=== PATIENT | female | born 2005 | race Caucasian/White ===

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

== ENCOUNTER 2023-08-07 10:11 | Emergency (ER) | payer OTHER ==
--- OUTSIDE RECORDS SUMMARY | 2023-08-07 10:17 | XMS REPORT | Continuity of Care Document ---
Author Name Unknown Address [address] [facility] [address] [place] [address] [facility] Address [address] [facility] 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 Name Role Phone Willem Adler Primary Care Physician [phone] BAKARI CAMARILLO Attending Clinician Unavailable DONNIE SMITH Attending Clinician Unavailable Bakari Camarillo MD Attending Clinician [phone], [facility] Attending Clinician Unavailable Priscila Nickerson PA-C Attending Clinician [phone] PRISCILA NICKERSON Attending Clinician Unavailable Doctor Unassigned, [place] Attending Clinician U navailable Ultrasound, [facility] Attending Clinician UnavailNaomi Burrell MD Attending Clinician [phone], [facility] Attending Clinician Unavailable Bakari Camarillo MD Admitting Clinician [phone] Payers Payer Name Policy Type Policy Number Effective Date Expirati on Date Source [facility] [id number] 2023 00:00:00 Problems Condition Name Condition Details Condition Category Status Onset Date Resolution Date Last Treatment Date Treating Clinician Comments Source Anemia of mother in , antepartum Anemia of mother in , antepartum Disease Active 07-29 00:00: 00 [facility] Maternal varicella, non-immune Maternal varicella, non-immune Disease Active 07-29 00:00: 00 [facility] 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 Disease Active 6-13 00:00: 00 [facility] Vaginal bleeding affecting early Vaginal bleeding affecting early Disease Active 5-30 00:00: 00 [facility] Normal in second trimester Normal in second trimester Disease Active 5-16 00:00: 00 [facility] Rh negative state in antepartum period Rh negative state in antepartum period Disease Active 1-14 00:00: 00 [facility] Well woman exam Well woman exam Disease Active 8 00:00: 00 [facility] No known active problems No known active problems Disease [facility] Uses hormonal contracept simone patch as primary control method Uses hormonal contracept simone patch as primary control method Disease Resolve d 10-08 00:00: 00 2023-07-02 00:00:00 2023-07-02 14:16:52 [facility] Nexplanon in place Nexplanon in place Disease Resolve d 0 3-03 00:00: 00 2020-10-08 00:00:00 2020-10-08 09:47:12 [facility] Anemia associated with acute blood loss Anemia associated with acute blood loss Disease Resolve d 2019-0 1-16 00:00: 00 2019-04-04 00:00:00 2019-04-04 14:35:14 [facility] Liveborn , of rodriguez , born in hospital by vaginal delivery Liveborn , of rodriguez , born in hospital by vaginal delivery Disease Resolve d 2019-0 1-15 00:00: 00 2019-04-04 00:00:00 2019-04-04 14:35:11 [facility] Positive GBS test Positive GBS test Disease Resolve d 2019-0 1-14 00:00: 00 2019-04-04 00:00:00 2019-04-04 14:35:08 [facility] High-risk in third trimester High-risk in third trimester Disease Resolve d 2018- 2-18 00:00: 00 2019-04-04 00:00:00 2019-04-04 14:35:04 [facility] 39 weeks gestation of 39 weeks gestation of Disease Resolve d 2018-02 17-18 00:00: 00 2019-04-04 00:00:00 2019-04-04 14:35:07 [facility] Encounter for contracept simone management , unspecifie d contracept simone encounter type Encounter for contracept simone management , unspecifie d contracept simone encounter type Disease Resolve d 09-22 00:00: 00 2019-02-02 00:00:00 2019-02-02 09:14:27 [facility] Oral contracept ion initiation Oral contracept ion initiation Disease Resolve d 09-22 00:00: 00 2019-02-02 00:00:00 2019-02-02 09:14:28 [facility] STD (female) STD (female) Disease Resolve d 09-22 00:00: 00 2016-09-22 00:00:00 2016-09-22 17:46:16 [facility] Allergies, Adverse Reactions, Alerts Allergy Name Allergy Type Status Severity Reaction(s) Onset Date Inactive Date Treating Clinician Comments Source NO KNOWN ALLERGIE S Drug Class Active [facility] Social History Social Habit Start Date Stop Date Quantity Comments Source ASSERTION 2023-05-05 00:00:00 [facility] Exposure to SARS-CoV-2 (event) Not sure [facility] Alcoholic beverage intake 2023-07-30 00:00:00 2023-07-30 00:00:00 Current non-drinker of alcohol (finding) [facility] Tobacco use and exposure 2023-07-02 00:00:00 2023-07-02 00:00:00 Smokeless tobacco non-user [facility] Alcohol intake 2020-10-08 00:00:00 2020-10-08 00:00:00 Current non-drinker of alcohol (finding) [facility] History of Social function 2019-09-22 00:00:00 2019-09-22 00:00:00 [facility] Sex assigned at 2003 00:00:00 2005 00:00:00 [facility] Smoking Status Start Date Stop Date Source Never smoked tobacco [facility] Medications Ordered Medication Name Filled Medication Name Start Date Stop Date Current Medication? Ordering Clinician Indication Dosage Frequency Signature (SIG) Comments Components Source ferrous sulfate (IRON, FERROUS SULFATE,) 325 mg (65 mg iron) tablet 07-02 00:00: 00 Yes [id number] 325mg Take 1 tablet by mouth in the morning and 1 tablet in the evening. [facility] bisacodyL (DULCOLAX, BISACODYL,) 5 mg EC tablet 07-02 00:00: 00 Yes [id number] 10mg Take 2 tablets by mouth once daily as needed for Constipati on. [facility] PNV no.95/tejal us fum/folic ac ( ORAL) 07-01 14:35: 18 Yes Take by mouth. [facility] norelgestro min-ethinyl estradiol (XULANE) 150-35 mcg/24 hr patch 10-08 00:00: 00 07-01 00:00 :00 No [id number] 1{patch } Apply 1 Patch to skin weekly. [facility] etonogestre l (NEXPLANON) implant 68 mg 3-03 01:45: 00 04-18 00:36 :00 No 68mg [facility] ascorbic acid (vitamin C) (VITAMIN C) tablet 500 mg 03-04 15:00: 00 Yes 500mg 500 mg, Oral, DAILY, First dose on Thu03/04/19 at 0900, Until Discontinu ed, Routine [facility] foLIC acid (FOLATE) tablet 1 mg 03-04 15:00: 00 Yes 1mg 1 mg, Oral, DAILY, First dose on Thu03/04/19 at 0900, Until Discontinu ed, Routine [facility] foLIC acid 1 mg tablet 03-04 00:00: 00 10-08 00:00 :00 No [id number] 1mg Take 1 tablet by mouth daily. [facility] ascorbic acid, vitamin C, 500 mg tablet 03-04 00:00: 00 10-08 00:00 :00 No [id number] 500mg Take 1 tablet by mouth daily. [facility] PNV no.95/tejal us fum/folic ac ( ORAL) 03-03 16:34: 35 03-03 00:00 :00 No Take by mouth. [facility] famotidine (PEPCID) 20 mg tablet 03-03 16:34: 35 03-03 00:00 :00 No 20mg Take 20 mg by mouth daily. [facility] ferrous sulfate tablet 325 mg 03-03 16:15: 00 Yes 325mg 325 mg, Oral, BID, First dose on Thu03/03/19 at 1015, Until Discontinu ed, Routine [facility] rho(D) immune globulin (RHOGAM) syringe 300 mcg 03-03 14:30: 00 03-03 14:30 :00 No 300ug 300 mcg, Intramuscu lar, ONCE, 1 dose, Karo 03/03/19 at 0830, Routine [facility] LR 1000 mL + oxytocin 20 units IV Solution 03-03 01:15: 00 03-02 23:50 :00 No at 999 mL/hr, IV Infusion, ONCE, 1 dose, Thu03/02/19 at 1915, Routine [facility] HYDROcodone -acetaminop hen (NORCO 5) 5-325 mg tablet 1 tablet 03-03 00:11: 42 Yes 1{tbl} 1 tablet, Oral, Q6HPRN, Starting Thu03/02/19 at 1811, Until Discontinu ed, Routine, Pain (scale 7-10) [facility] ibuprofen (IBU) tablet 600 mg 03-03 00:11: 42 Yes 600mg 600 mg, Oral, Q6HPRN, Starting Thu03/02/19 at 1811, Until Discontinu ed, Routine, Pain (scale 4-6) [facility] ondansetron (ZOFRAN (PF)) injection 4 mg 03-03 00:11: 42 Yes 4mg 4 mg, Slow IV Push, Q8HPRN, Starting Thu03/02/19 at 1810, Until Discontinu ed, Routine, Nausea and Vomiting (N/V) [facility] simethicone (GAS RELIEF (SIMETHICON E)) chewable tablet 160 mg 03-03 00:11: 42 Yes 160mg 160 mg, Oral, PC+HSPRN, Starting Thu03/02/19 at 1810, Until Discontinu ed, Routine, Gas [facility] magnesium hydroxide (MILK OF MAGNESIA) 400 mg/5 mL suspension 30 mL 03-03 00:11: 42 Yes 30mL 30 mL, Oral, QDAILYPRN, Starting Thu03/02/19 at 1810, Until Discontinu ed, Routine, Constipati on [facility] acetaminoph en (TYLENOL) tablet 650 mg 03-03 00:11: 41 Yes 650mg 650 mg, Oral, Q6HPRN, Starting Thu03/02/19 at 1810, Until Discontinu ed, Routine, Pain (scale 1-3) [facility] diphenhydrA MINE (BENADRYL) tablet 25 mg 03-03 00:11: 41 Yes 25mg 25 mg, Oral, Q6HPRN, Starting Thu03/02/19 at 1810, Until Discontinu ed, Routine, Sleep, Itching [facility] docusate calcium (SURFAK) capsule 240 mg 03-03 00:11: 41 Yes 240mg 240 mg, Oral, QDAILYPRN, Starting Thu03/02/19 at 1810, Until Discontinu ed, Routine, Constipati on [facility] benzocaine- menthol (DERMOPLAST ) 20-0.5 % topical spray 03-03 00:11: 41 Yes Topical, PRN, Starting Thu03/02/19 at 1810, Until Discontinu ed, Routine, Perineum discomfort [facility] vitamin w/FA tablet 03-03 00:00: 00 10-08 00:00 :00 No [id number] 1{tbl} Take 1 tablet by mouth daily. [facility] docusate calcium 240 mg capsule 03-03 00:00: 00 10-08 00:00 :00 No [id number] 240mg Take 1 capsule by mouth once daily as needed for Constipati on. [facility] ferrous sulfate 325 mg (65 mg iron) tablet 03-03 00:00: 00 10-08 00:00 :00 No [id number] 325mg Take 1 tablet by mouth 2 (two) times daily. [facility] ibuprofen 600 mg tablet 03-03 00:00: 10-08 00:00 :00 No [id number] 600mg Take 1 tablet by mouth every 6 (six) hours as needed (Pain). Take with food or milk. [facility] amnioinfusi on IV infusion via PUMP 0.9 NaCL 1,000 mL 03-02 19:30: 00 03-02 19:35 :00 No 1000mL at 750 mL/hr, Intrauteri ne, ONCE, 1 dose, 03/02/19 at 1330, JUSTUS
Ma y give up 1000 mL. & nbsp;Infus e via Intrauteri ne Pressure Catheter.& nbsp;&nbsp ;The infusion is started at 750 mL/hr by volume controlled infusion pump. "The infusion pump should be clearly labeled AMNIOINF USION.&n bsp; Once 750 mL has been infused, the infusion may be dicsontinu ed or decreased to 100 mL/hr until the liter is complete.& nbsp;&nbsp ;Notify Medical Staff Manager if uterine resting tone exceeds 25 mmHg at any time during the amnioinfus ion. Obst etrics (PAKO) Aminoinfus ion Orders
[facility] lactated ringers IV infusion 1,000 mL 03-02 14:00: 00 03-02 13:10 :00 No 1000mL at 999 mL/hr, 1,000 mL, IV Infusion, ONCE, 1 dose, 03/02/19 at 0800, Routine [facility] LR 1000 mL + oxytocin 20 units IV Solution 03-01 21:30: 00 03-03 00:11 :47 No 4mU/min 4 sandi-unit s/min (12 mL/hr), at 12 mL/hr, IV Infusion, CONTINUOUS , Starting Thu03/01/19 at 1530, Until Thu03/02/19 at 181, JUSTUS [facility] D5W-LR IV infusion 1,000 mL 03-01 21:30: 00 03-03 00:11 :47 No 1000mL at 125 mL/hr, IV Infusion, CONTINUOUS , Starting Thu03/01/19 at 1530, Until Thu03/02/19 at 181, Routine [facility] FENTanyl PF (SUBLIMAZE (PF)) injection 75 mcg 03-01 21:29: 54 03-03 00:11 :47 No 75ug 75 mcg, Slow IV Push, Q1HPRN, Starting Thu03/01/19 at 1529, Until Thu03/02/19 at 181, Routine, contractio n pain without an epidural and SVE < 8 cm and Cat I strip [facility] proMETHazin e (PHENERGAN) 25 mg in NaCl 0.9% (NS) 50 mL piggyback 03-01 21:29: 54 03-03 00:11 :47 No 25mg 25 mg, IV Piggyback, Q6HPRN, Starting Thu03/01/19 at 1529, Until Thu03/02/19 at 1811, 50 mL [facility] lactated ringers IV infusion 500 mL 03-01 21:29: 53 03-03 00:11 :47 No 500mL at 999 mL/hr, 500 mL, IV Infusion, PRN - SEE INSTRUCTIO NS, Starting Thu03/01/19 at 1529, Until Thu03/02/19 at 181, Routine [facility] ferrous sulfate (IRON, FERROUS SULFATE,) 325 mg (65 mg iron) tablet 2018-02 00:00: 00 03-03 00:00 :00 No [id number] 325mg Take 1 tablet by mouth daily. [facility] ranitidine HCl (ZANTAC 150 EFFERDOSE ORAL) 8 20:28: 21 Yes Take by mouth. [facility] PNV no.95/tejal us fum/folic ac ( ORAL) 2018-0 7-15 21:32: 44 Yes Take by mouth. [facility] Immunizations Ordered Immunization Name Filled Immunization Name Date Status Comments Source Rho (d) Immune Globulin 2019-03-03 00:00:00 Completed [facility] Rho (d) Immune Globulin 2019-03-03 00:00:00 Completed [facility] Rho (d) Immune Globulin 2019-03-03 00:00:00 Completed [facility] Rho (d) Immune Globulin 2019-03-03 00:00:00 Completed [facility] Rho (d) Immune Globulin 2019-03-03 00:00:00 Completed [facility] Rho (d) Immune Globulin 2019-03-03 00:00:00 Completed [facility] Rho (d) Immune Globulin 2019-03-03 00:00:00 Completed [facility] Rho (d) Immune Globulin 2019-03-03 00:00:00 Completed [facility] Rho (d) Immune Globulin 2019-03-03 00:00:00 Completed [facility] Rho (d) Immune Globulin 2019-03-03 00:00:00 Completed [facility] Rho (d) Immune Globulin 2019-03-03 00:00:00 Completed [facility] Rho (d) Immune Globulin 2019-03-03 00:00:00 Completed [facility] Rho (d) Immune Globulin 2019-03-03 00:00:00 Completed [facility] Rho (d) Immune Globulin 2019-03-03 00:00:00 Completed [facility] Rho (d) Immune Globulin 2019-03-03 00:00:00 Completed [facility] Rho (d) Immune Globulin 2019-03-03 00:00:00 Completed [facility] Rho (d) Immune Globulin 2019-03-03 00:00:00 Completed [facility] Rho (d) Immune Globulin 2019-03-03 00:00:00 Completed [facility] Rho (d) Immune Globulin 2019-03-03 00:00:00 Completed [facility] Rho (d) Immune Globulin 2019-03-03 00:00:00 Completed [facility] Rho (d) Immune Globulin 2019-03-03 00:00:00 Completed [facility] Rho (d) Immune Globulin 2019-03-03 00:00:00 Completed [facility] Rho (d) Immune Globulin 2019-03-03 00:00:00 Completed [facility] Rho (d) Immune Globulin 2019-03-03 00:00:00 Completed [facility] Rho (d) Immune Globulin 2019-03-03 00:00:00 Completed [facility] Rho (d) Immune Globulin 2019-03-03 00:00:00 Completed [facility] Rho (d) Immune Globulin 2019-03-03 00:00:00 Completed [facility] Rho (d) Immune Globulin 2019-03-03 00:00:00 Completed [facility] Rho (d) Immune Globulin 2019-03-03 00:00:00 Completed [facility] Rho (d) Immune Globulin 2019-03-03 00:00:00 Completed [facility] Rho (d) Immune Globulin 2019-03-03 00:00:00 Completed [facility] Rho (d) Immune Globulin 2019-03-03 00:00:00 Completed [facility] Rho (d) Immune Globulin 2018-12-20 00:00:00 Completed [facility] TDAP (ADACEL) VACCINE 2018-12-20 00:00:00 Completed [facility] Rho (d) Immune Globulin 2018-12-20 00:00:00 Completed [facility] TDAP (ADACEL) VACCINE 2018-12-20 00:00:00 Completed [facility] Rho (d) Immune Globulin 2018-12-20 00:00:00 Completed [facility] TDAP (ADACEL) VACCINE 2018-12-20 00:00:00 Completed [facility] Rho (d) Immune Globulin 2018-12-20 00:00:00 Completed [facility] TDAP (ADACEL) VACCINE 2018-12-20 00:00:00 Completed [facility] Rho (d) Immune Globulin 2018-12-20 00:00:00 Completed [facility] TDAP (ADACEL) VACCINE 2018-12-20 00:00:00 Completed [facility] Rho (d) Immune Globulin 2018-12-20 00:00:00 Completed [facility] TDAP (ADACEL) VACCINE 2018-12-20 00:00:00 Completed [facility] Rho (d) Immune Globulin 2018-12-20 00:00:00 Completed [facility] TDAP (ADACEL) VACCINE 2018-12-20 00:00:00 Completed [facility] Rho (d) Immune Globulin 2018-12-20 00:00:00 Completed [facility] TDAP (ADACEL) VACCINE 2018-12-20 00:00:00 Completed [facility] Rho (d) Immune Globulin 2018-12-20 00:00:00 Completed [facility] TDAP (ADACEL) VACCINE 2018-12-20 00:00:00 Completed [facility] Rho (d) Immune Globulin 2018-12-20 00:00:00 Completed [facility] TDAP (ADACEL) VACCINE 2018-12-20 00:00:00 Completed [facility] Rho (d) Immune Globulin 2018-12-20 00:00:00 Completed [facility] TDAP (ADACEL) VACCINE 2018-12-20 00:00:00 Completed [facility] Rho (d) Immune Globulin 2018-12-20 00:00:00 Completed [facility] TDAP (ADACEL) VACCINE 2018-12-20 00:00:00 Completed [facility] Rho (d) Immune Globulin 2018-12-20 00:00:00 Completed [facility] TDAP (ADACEL) VACCINE 2018-12-20 00:00:00 Completed [facility] Rho (d) Immune Globulin 2018-12-20 00:00:00 Completed [facility] TDAP (ADACEL) VACCINE 2018-12-20 00:00:00 Completed [facility] Rho (d) Immune Globulin 2018-12-20 00:00:00 Completed [facility] TDAP (ADACEL) VACCINE 2018-12-20 00:00:00 Completed [facility] Rho (d) Immune Globulin 2018-12-20 00:00:00 Completed [facility] TDAP (ADACEL) VACCINE 2018-12-20 00:00:00 Completed [facility] Rho (d) Immune Globulin 2018-12-20 00:00:00 Completed [facility] TDAP (ADACEL) VACCINE 2018-12-20 00:00:00 Completed [facility] Rho (d) Immune Globulin Unknown Completed [facility] TDAP (ADACEL) VACCINE Unknown Completed [facility] Rho (d) Immune Globulin Unknown Completed [facility] Rho (d) Immune Globulin Unknown Completed [facility] Rho (d) Immune Globulin Unknown Completed [facility] TDAP (ADACEL) VACCINE Unknown Completed [facility] Rho (d) Immune Globulin Unknown Completed [facility] Rho (d) Immune Globulin Unknown Completed [facility] Rho (d) Immune Globulin Unknown Completed [facility] TDAP (ADACEL) VACCINE Unknown Completed [facility] Rho (d) Immune Globulin Unknown Completed [facility] Rho (d) Immune Globulin Unknown Completed [facility] Rho (d) Immune Globulin Unknown Completed [facility] TDAP (ADACEL) VACCINE Unknown Completed [facility] Rho (d) Immune Globulin Unknown Completed [facility] Rho (d) Immune Globulin Unknown Completed [facility] Rho (d) Immune Globulin Unknown Completed [facility] TDAP (ADACEL) VACCINE Unknown Completed [facility] Rho (d) Immune Globulin Unknown Completed [facility] Rho (d) Immune Globulin Unknown Completed [facility] Rho (d) Immune Globulin Unknown Completed [facility] TDAP (ADACEL) VACCINE Unknown Completed [facility] Rho (d) Immune Globulin Unknown Completed [facility] Rho (d) Immune Globulin Unknown Completed [facility] Rho (d) Immune Globulin Unknown Completed [facility] TDAP (ADACEL) VACCINE Unknown Completed [facility] Rho (d) Immune Globulin Unknown Completed [facility] Rho (d) Immune Globulin Unknown Completed [facility] Rho (d) Immune Globulin Unknown Completed [facility] TDAP (ADACEL) VACCINE Unknown Completed [facility] Rho (d) Immune Globulin Unknown Completed [facility] Rho (d) Immune Globulin Unknown Completed [facility] Rho (d) Immune Globulin Unknown Completed [facility] Rho (d) Immune Globulin Unknown Completed [facility] TDAP (ADACEL) VACCINE Unknown Completed [facility] Rho (d) Immune Globulin Unknown Completed [facility] Rho (d) Immune Globulin Unknown Completed [facility] Rho (d) Immune Globulin Unknown Completed [facility] Rho (d) Immune Globulin Unknown Completed [facility] TDAP (ADACEL) VACCINE Unknown Completed [facility] Rho (d) Immune Globulin Unknown Completed [facility] Rho (d) Immune Globulin Unknown Completed [facility] Rho (d) Immune Globulin Unknown Completed [facility] Rho (d) Immune Globulin Unknown Completed [facility] TDAP (ADACEL) VACCINE Unknown Completed [facility] Rho (d) Immune Globulin Unknown Completed [facility] Rho (d) Immune Globulin Unknown Completed [facility] Rho (d) Immune Globulin Unknown Completed [facility] Vital Signs Vital Name Observation Time Observation Value Comments S ource Systolic blood pressure 2023-07-30 16:13:00 110 mm[Hg] [facility] Diastolic blood pressure 2023-07-30 16:13:00 71 mm[Hg] [facility] Heart rate 2023-07-30 16:13:00 79 /min [facility] Body temperature 2023-07-30 16:13:00 36.94 [facility] Body height 2023-07-30 16:13:00 149.9 cm [facility] Body weight 2023-07-30 16:13:00 49.17 kg [facility] BMI 2023-07-30 16:13:00 21.89 kg/m2 [facility] Systolic blood pressure 2023-07-16 19:33:00 115 mm[Hg] [facility] Diastolic blood pressure 2023-07-16 19:33:00 79 mm[Hg] [facility] Heart rate 2023-07-16 19:33:00 86 /min [facility] Body temperature 2023-07-16 19:33:00 36.89 [facility] Body height 2023-07-16 19:33:00 149.9 cm [facility] Body weight 2023-07-16 19:33:00 46.448 kg [facility] BMI 2023-07-16 19:33:00 20.68 kg/m2 [facility] Systolic blood pressure 2023-07-02 19:34:00 124 mm[Hg] [facility] Diastolic blood pressure 2023-07-02 19:34:00 83 mm[Hg] [facility] Heart rate 2023-07-02 19:34:00 74 /min [facility] Body temperature 2023-07-02 19:34:00 36.67 [facility] Body height 2023-07-02 19:34:00 149.9 cm [facility] Body weight 2023-07-02 19:34:00 45.723 kg [facility] BMI 2023-07-02 19:34:00 20.36 kg/m2 [facility] Systolic blood pressure 2020-10-08 14:33:00 104 mm[Hg] [facility] Diastolic blood pressure 2020-10-08 14:33:00 68 mm[Hg] [facility] Heart rate 2020-10-08 14:33:00 75 /min [facility] Body temperature 2020-10-08 14:33:00 36.89 [facility] Respiratory rate 2020-10-08 14:33:00 18 /min [facility] Body height 2020-10-08 14:33:00 149.9 cm [facility] Body weight 2020-10-08 14:33:00 47.174 kg [facility] BMI 2020-10-08 14:33:00 21.01 kg/m2 [facility] Systolic blood pressure 2020-10-02 19:18:00 122 mm[Hg] [facility] Diastolic blood pressure 2020-10-02 19:18:00 86 mm[Hg] [facility] [facility] Heart rate 2020-10-02 19:18:00 62 /min [facility] Body temperature 2020-10-02 19:18:00 36.94 [facility] Respiratory rate 2020-10-02 19:18:00 18 /min [facility] Body height 2020-10-02 19:18:00 149.9 cm [facility] Body weight 2020-10-02 19:18:00 49.442 kg [facility] BMI 2020-10-02 19:18:00 22.02 kg/m2 [facility] Systolic blood pressure 2019-10-03 18:26:00 107 mm[Hg] [facility] Diastolic blood pressure 2019-10-03 18:26:00 70 mm[Hg] [facility] Heart rate 2019-10-03 18:26:00 90 /min [facility] Body temperature 2019-10-03 18:26:00 36.72 [facility] Respiratory rate 2019-10-03 18:26:00 18 /min [facility] Body height 2019-10-03 18:26:00 152.4 cm [facility] Body weight 2019-10-03 18:26:00 58.968 kg [facility] BMI 2019-10-03 18:26:00 25.39 kg/m2 [facility] Systolic blood pressure 2019-04-18 23:17:00 96 mm[Hg] [facility] Diastolic blood pressure 2019-04-18 23:17:00 71 mm[Hg] [facility] Heart rate 2019-04-18 23:17:00 57 /min [facility] Body temperature 2019-04-18 23:17:00 36.67 [facility] Respiratory rate 2019-04-18 23:17:00 18 /min [facility] Body weight 2019-04-18 23:17:00 55.339 kg [facility] Systolic blood pressure 2019-04-04 20:25:00 98 mm[Hg] [facility] Diastolic blood pressure 2019-04-04 20:25:00 65 mm[Hg] [facility] Heart rate 2019-04-04 20:25:00 56 /min [facility] Body temperature 2019-04-04 20:25:00 36.78 [facility] Respiratory rate 2019-04-04 20:25:00 16 /min [facility] Body height 2019-04-04 20:25:00 149.9 cm [facility] Body weight 2019-04-04 20:25:00 56.427 kg [facility] BMI 2019-04-04 20:25:00 25.13 kg/m2 [facility] Systolic blood pressure 2019-03-04 18:00:00 119 mm[Hg] [facility] Diastolic blood pressure 2019-03-04 18:00:00 75 mm[Hg] [facility] Heart rate 2019-03-04 18:00:00 74 /min [facility] Body temperature 2019-03-04 18:00:00 36.17 [facility] Respiratory rate 2019-03-04 18:00:00 18 /min [facility] Oxygen saturation in Arterial blood by Pulse oximetry 2019-03-04 13:45:00 98 /min [facility] Body height 2019-03-01 21:39:00 149.9 cm [facility] Body weight 2019-03-01 21:39:00 62.959 kg [facility] BMI 2019-03-01 21:39:00 28.03 kg/m2 [facility] Systolic blood pressure 2018-10-25 21:01:00 110 mm[Hg] [facility] Diastolic blood pressure 2018-10-25 21:01:00 79 mm[Hg] [facility] Heart rate 2018-10-25 21:01:00 86 /min [facility] Body temperature 2018-10-25 21:01:00 36.72 [facility] Respiratory rate 2018-10-25 21:01:00 18 /min [facility] Body height 2018-10-25 21:01:00 152.4 cm [facility] Body weight 2018-10-25 21:01:00 50.349 kg [facility] BMI 2018-10-25 21:01:00 21.68 kg/m2 [facility] Systolic blood pressure 2018-09-27 20:27:00 109 mm[Hg] [facility] Diastolic blood pressure 2018-09-27 20:27:00 66 mm[Hg] [facility] Heart rate 2018-09-27 20:27:00 76 /min [facility] Body temperature 2018-09-27 20:27:00 36.78 [facility] Respiratory rate 2018-09-27 20:27:00 18 /min [facility] Body height 2018-09-27 20:27:00 152.4 cm [facility] Body weight 2018-09-27 20:27:00 46.72 kg [facility] BMI 2018-09-27 20:27:00 20.12 kg/m2 [facility] Procedures Procedure Date / Time Performed Performing Clinician Source POCT URINALYSIS W/O SPECIFIC GRAVITY 2023-07-30 00:00:00 Bakari Camarillo [facility] POCT URINALYSIS W/O SPECIFIC GRAVITY 2023-07-16 00:00:00 Bakari Camarillo [facility] <14 WEEKS US LIMITED 2023-07-02 22:31:54 Bakari Camarillo [facility] ASSIGNMENT OF BENEFITS 2020-10-02 18:54:56 Docto r Unassigned, [place] [facility] ASSIGNMENT OF BENEFITS 2019-10-03 18:15:25 Docto r Unassigned, [place] [facility] CONSENT FOR CONTRACEPTION 2019-04-18 06:01:00 Doctor Unassigned, [place] [facility] CBC WITH DIFFERENTIAL 2019-03-03 10:43:00 Bakari Camarillo [facility] HB -MATERNAL HEMORRHAGE SCREEN 2019-03-03 10:43:00 Bakari Camarillo [facility] VENOUS CORD GAS 2019-03-02 23:22:00 Bakari Camarillo [facility] CBC WITH DIFFERENTIAL 2019-03-01 22:03:00 Bakari Camarillo [facility] HEPATITIS B SURFACE ANTIGEN 2019-03-01 22:03:00 Bakari Camarillo [facility] ADC OR POONAM ONLY - RPR 2019-03-01 22:03:00 Bakari Camarillo [facility] HIV 1/2 AG-AB WITH REFLEX 2019-03-01 22:03:00 Bakari Camarillo [facility] RH IMMUNE GLOBULIN REQUIRED? 2019-03-01 22:02:00 Bakari Camarillo [facility] HB ABO GROUPING 2019-03-01 22:02:00 Bakari Camarillo [facility] RHO (D) IMMUNE GLOBULIN 2019-03-01 22:02:00 Bakari Camarillo [facility] HOSPITAL ADMISSION 2019-03-01 06:01:00 Doctor Un assigned, [place] [facility] POCT URINALYSIS W/O SPECIFIC GRAVITY 2018-10-25 00:00:00 Priscila Nickerson [facility] EXTERNAL PROVIDER RECORDS 2018-10-07 05:01:00 Doctor Unassigned, [place] [facility] 3 HR GLUCOSE TOLERANCE TEST 2018-09-28 16:26:00 Priscila Nickerson [facility] 2 HR GLUCOSE TOLERANCE TEST 2018-09-28 15:25:00 Priscila Nickerson [facility] 1 HR GLUCOSE TOLERANCE TEST 2018-09-28 14:23:00 rPiscila Nickerson [facility] GLUCOSE FASTING 2018-09-28 13:13:00 Priscila Nickerson [facility] 3 HR GLUCOSE TOLERANCE PANEL 2018-09-28 13:13:00 Krishan Priscila [facility] CONSENT/REFUSAL FOR DIAGNOSIS AND TREATMENT 2018-09-28 12:57:58 Doctor Unassigned, [place] [facility] ASSIGNMENT OF BENEFITS 2018-09-28 12:57:42 Docto r Unassigned, [place] [facility] ASSIGNMENT OF BENEFITS 2018-09-17 18:00:35 Docto r Unassigned, [place] [facility] Encounters Start Date/Time End Date/Time Encounter Type Admission Type Attending [facility] Facility Care Department Encounter ID Source 2023-09-23 10:45:00 2023-09-23 10:45:00 Outpatient BAKARI TEAGUE [facility] [id number] [facility] 2023-08-28 11:00:00 2023-08-28 11:00:00 Outpatient BAKARI TEAGUE [facility] [id number] [facility] 2023-08-07 00:00:00 2023-08-07 08:15:27 Telephone Bakari Cam[facility]illo [facility] 1.2.840.114 350.1.13.10 4.2.7.2.686 [id number] 134 [id number] [facility] 2023-08-06 11:00:00 2023-08-06 11:15:00 Tuberculosis Specialist Visit 2, Adc Lab Bakari Camarillo [facility] N[facility] 1.2.840.114 350.1.13.10 4.2.7.2.686 [id number] [facility] 2023-08-06 11:00:00 2023-08-06 11:00:00 Outpatient R BAKARI CAMARILLO [facility] [id number] [facility] 2023-07-30 11:15:00 2023-07-30 11:25:12 [facility] [id number] [facility] 2023-07-30 11:15:00 2023-07-30 11:25:12 Routine Visit Bakari Camarillo [facility] 1.2.840.114 350.1.13.10 4.2.7.2.686 [id number] 134 [id number] [facility] 2023-07-16 14:15:00 2023-07-16 14:30:00 Routine Visit Bakari Camarillo [facility] 1.2.840.114 350.1.13.10 4.2.7.2.686 [id number] 134 [id number] [facility] 2023-07-16 14:15:00 2023-07-16 14:15:00 Outpatient R BAKARI CAAMRILLO [facility] [id number] [facility] 2023-07-16 00:00:00 2023-07-16 11:09:00 Telephone Bakari Camarillo [facility] 1.2.840.114 350.1.13.10 4.2.7.2.686 [id number] 134 [id number] [facility] 2023-07-14 00:00:00 2023-07-14 10:05:25 Telephone [facility] 1.2.840.114 350.1.13.10 4.2.7.2.686 [id number] 134 [id number] [facility] 2023-07-14 00:00:00 2023-07-14 09:50:55 [facility] 1.2.840.114 350.1.13.10 4.2.7.2.686 [id number] 134 [id number] [facility] 2023-07-10 00:00:00 2023-07-10 09:43:14 Telephone Bakari Camarillo [facility] 1.2.840.114 350.1.13.10 4.2.7.2.686 [id number] 134 [id number] [facility] 2023-07-03 00:00:00 2023-07-03 12:07:36 Case Management Bakari Camarillo [facility] 1.2.840.114 350.1.13.10 4.2.7.2.686 [id number] 134 [id number] [facility] 2023-07-02 15:30:00 2023-07-02 15:30:00 Tuberculosis Specialist Visit 2, Adc Lab Bakari Camarillo [facility] 1.2.840.114 350.1.13.10 4.2.7.2.686 [id number] 353 [id number] [facility] 2023-07-02 15:30:00 2023-07-02 15:11:09 Outpatient R BAKARI CAMARILLO [facility] [id number] [facility] 2023-07-02 14:30:00 2023-07-02 14:57:50 Initial Visit Bakari Camarillo [facility] 1.2.840.114 350.1.13.10 4.2.7.2.686 [id number] 134 [id number] [facility] 2020-10-08 09:06:36 2020-10-08 09:49:03 Office Visit Bakari Camarillo [facility] 1.2.840.114 350.1.13.10 4.2.7.2.686 [id number] 134 [id number] [facility] 2020-10-08 09:00:00 2020-10-08 09:00:00 Outpatient R BAKARI CAMARILLO [facility] [id number] [facility] 2020-10-02 13:55:09 2020-10-02 14:25:09 [facility] 1.2.840.114 350.1.13.10 4.2.7.2.686 [id number] 134 [id number] [facility] 2020-10-02 14:00:00 2020-10-02 14:00:00 Outpatient R KRISHAN PRISCILA [facility] [id number] [facility] 2020-10-02 00:00:00 2020-10-02 00:00:00 Orders Only Doctor Unassigned, [place] [facility] 1.2.840.114 350.1.13.10 4.2.7.2.686 [id number] [id number] [facility] 2019-10-03 13:16:54 2019-10-03 13:40:22 Office Visit ArtPriscila yarbrough [facility] 1.2.840.114 350.1.13.10 4.2.7.2.686 [id number] 134 [id number] [facility] 2019-10-03 13:00:00 2019-10-03 13:00:00 Outpatient R PRISCILA NICKERSON [facility] [id number] [facility] 2019-10-03 00:00:00 2019-10-03 00:00:00 Orders Only Doctor Unassigned, [place] [facility] 1.2.840.114 350.1.13.10 4.2.7.2.686 [id number] 009 [id number] [facility] 2019-04-18 16:18:02 2019-04-18 17:29:30 Office Visit Bakari Camarillo [facility] 1.2.840.114 350.1.13.10 4.2.7.2.686 [id number] 134 [id number] [facility] 2019-04-18 16:00:00 2019-04-18 16:00:00 Outpatient R BAKARI CAMARILLO [facility] [id number] [facility] 2019-04-18 00:00:00 2019-04-18 00:00:00 Orders Only Doctor Unassigned, [place] [facility] 1.2.840.114 350.1.13.10 4.2.7.2.686 [id number] [id number] [facility] 2019-04-04 14:01:56 2019-04-04 14:16:56 Routine Visit Priscila Nickerson [facility] 1.2.840.114 350.1.13.10 4.2.7.2.686 [id number] 134 [id number] [facility] 2019-03-09 00:00:00 2019-03-09 00:00:00 Telephone Bakari Camarillo [facility] 1.2.840.114 350.1.13.10 4.2.7.2.686 [id number] 134 [id number] [facility] 2019-03-09 00:00:00 2019-03-09 00:00:00 Refill Priscila Nickerson [facility] 1.2.840.114 350.1.13.10 4.2.7.2.686 [id number] 134 [id number] [facility] 2019-03-01 15:00:00 2019-03-04 14:05:00 [address] Encounter Bakari Camarillo [facility] 1.2.840.114 350.1.13.10 4.2.7.2.686 [id number] [facility] 2019-03-01 00:00:00 2019-03-01 00:00:00 Orders Only Doctor Unassigned, [place] [facility] 1.2.840.114 350.1.13.10 4.2.7.2.686 [id number] [facility] 2018-10-25 15:49:21 2018-10-25 16:26:38 Routine Visit Priscila Nickerson [facility] 1.2.840.114 350.1.13.10 4.2.7.2.686 [id number] 134 [id number] [facility] 2018-10-15 13:39:20 2018-10-15 15:05:02 Tuberculosis Specialist Visit Ultrasound, Adc Naomi Sandoval [facility] 1.2.840.114 350.1.13.10 4.2.7.2.686 [id number] 134 [id number] [facility] 2018-10-07 00:00:00 2018-10-07 00:00:00 Orders Only Doctor Unassigned, [place] [facility] 1.2.840.114 350.1.13.10 4.2.7.2.686 [id number] [facility] 2018-09-28 08:00:41 2018-09-28 08:15:41 Tuberculosis Specialist Visit 1, Adc Lab Bakari Camarillo [facility] 1.2.840.114 350.1.13.10 4.2.7.2.686 [id number] [facility] 2018-09-28 00:00:00 2018-09-28 00:00:00 Orders Only Doctor Unassigned, [place] [facility] 1.2.840.114 350.1.13.10 4.2.7.2.686 [id number] 009 [id number] [facility] 2018-09-27 15:19:36 2018-09-27 15:51:04 Routine Visit Bakari Camarillo [facility] 1.2.840.114 350.1.13.10 4.2.7.2.686 [id number] 134 [id number] [facility] 2018-09-20 00:00:00 2018-09-20 00:00:00 Case Management Priscila Nickerson [facility] 1.2.840.114 350.1.13.10 4.2.7.2.686 [id number] 134 [id number] [facility] 2018-09-17 13:00:11 2018-09-17 13:15:11 Tuberculosis Specialist Visit 1, Adc Lab Bakari Camarillo [facility] 1.2840.114 350.1.13.10 4.2.7.2.686 [id number] 353 [id number] [facility] 2018-09-17 00:00:00 2018-09-17 00:00:00 Orders Only Doctor Unassigned, [place] [facility] 1.2840.114 350.1.13.10 4.2.7.2.686 [id number] 009 [id number] [facility] Results Test Description Test Time Test Comments Results Result Co mments Source [facility] w/o Specific [id number] 19:35:00* Test Item Value Reference Range Interpretation Comme nts POCT PH U (test code = 3254) 5 mg/dl 5-8 POCT U LEUK EST (test code = 3263) egative Negative - Negative POCT U NIT (test code = 3262) Negative Negative - Negati ve POCT U PROT (test code = 3259) Negative Negative - Negat simone POCT U GLU (test code = 3256) Negative Negative - Negati ve POCT U KETONE (test code = 3258) Negative Negative - Neg ative POCT U BLD (test code = 3257) Negative Negative - Negati ve [facility]FET[facility] MATERNAL HEMO [id number] 16:26:34 * Test Item Value Reference Range Interpretation Comme nts SCREEN (test code = 846) Negative Performed at [facility] Blood [address] [place] [address] Free: [phone] No. [id number] RHIG REQUIRED? (test code = 1747) 1 Syringe Performed at [facility] Blood [address] [place] [address] Free: [phone] No. [id number] [facility] WITH [id number] 11:02:00* Test Item Value Reference Range Interpretation Comme nts WBC (test code = 6690-2) See_Comment [Automated messa ge] The system which generated this result transmitted reference range: 4.50 - 13.50 10*3/?L. The reference range was not used to interpret this result as normal/abnormal. RBC (test code = 789-8) See_Comment L [Automated messa ge] The system which generated this result transmitted reference range: 4.10 - 5.10 10*6/?L. The reference range was not used to interpret this result as normal/abnormal. HGB (test code = 718-7) 7.9 g/dL 12-16 L HCT (test code = 4544-3) 24.4 % 36-45 L MCV (test code = 787-2) 93.5 fL 78-95 MCH (test code = 785-6) 30.3 pg 26-32 MCHC (test code = 786-4) 32.4 g/dL 32-36 RDW-SD (test code = 63706-6) 42.3 fL 38.5-49 RDW-CV (test code = 788-0) 12.6 % 11.5-14 PLT (test code = 777-3) See_Comment [Automated messa ge] The system which generated this result transmitted reference range: 135 - 361 10*3/?L. The reference range was not used to interpret this result as normal/abnormal. MPV (test code = 26895-5) 9.3 fL 9.4-13.3 L NRBC/100 WBC (test code = 1002410387) See_Comment [Automated me ssage] The system which generated this result transmitted reference range: 0.0 - 10.0 /100 WBCs. The reference range was not used to interpret this result as normal/abnormal. NRBC x10^3 (test code = 1540850817) <0.01 See_Comment [Automated messa ge] The system which generated this result transmitted reference range: 10*3/?L. The reference range was not used to interpret this result as normal/abnormal. GRAN MAT (NEUT) % (test code = 770-8) 76.0 % IMM GRAN % (test code = 5450789805) 0.50 % LYMPH % (test code = 736-9) 13.8 % MONO % (test code = 5905-5) 9.3 % EOS % (test code = 713-8) 0.2 % BASO % (test code = 706-2) 0.2 % GRAN MAT x10^3(ANC) (test code = 7585671703) 9.14 10*3/uL 1.5-10.3 IMM GRAN x10^3 (test code = 1367104323) 0.06 10*3/uL 0-0.06 LYMPH x10^3 (test code = 731-0) 1.66 10*3/uL 0.7-7.4 MONO x10^3 (test code = 742-7) 1.12 10*3/uL 0-0.5 H EOS x10^3 (test code = 711-2) 0.03 10*3/uL 0-0.4 BASO x10^3 (test code = 704-7) 0.03 10*3/uL 0-0.1 Lab Interpretation (test code = 92611-6) Abnormal [facility] I[facility] GLOBULIN REQUIRED?2019-03-03 03:24:57* Test Item Value Reference Range Interpretation Comme nts RHIG REQUIRED? (test code = 1747) 1 Syringe Performed at [facility] Laboratory Services - [facility] [address] [place] [phone] Free: [phone] No. [id number] [facility] (D) IMMUNE [id number] 03:24:56* Test Item Value Reference Range Interpretation Comme nts RHIG CANDIDATE? (test code = 5055) Yes- see comment A Patient is a candidate for RhIg- Patient is Rh Negative and baby is Rh Positive.Performe d at [facility] Laboratory Services - [facility] Blood [address] [place] [phone] Free: [phone] No. [id number] Lab Interpretation (test code = 97981-5) Abnormal [facility] Hospital[facility] Cord [id number] 23:42:00* Test Item Value Reference Range Interpretation Comme nts VENOUS BASE EXCESS, CORD (test code = 1110262730) mEq/L VENOUS PH, CORD (test code = 9132461642) 7.25-7.45 VENOUS PC02, CORD (test code = 4215217891) See_Comment H [Automated me ssage] The system which generated this result transmitted reference range: 27 - 49 mmHg. The reference range was not used to interpret this result as normal/abnormal. VENOUS PO2, CORD (test code = 0741424940) See_Comment [Automated me ssage] The system which generated this result transmitted reference range: 17 - 41 mmHg. The reference range was not used to interpret this result as normal/abnormal. VENOUS BICARBONATE, CORD (test code = 6022368177) See_Comment [Automa karie message] The system which generated this result transmitted reference range: 12 - 29 mEq/L. The reference range was not used to interpret this result as normal/abnormal. Lab Interpretation (test code = 40105-2) [facility]normal [facility] [id number] 23:37:00* Test Item Value Reference Range Interpretation Comme nts BASE EXCESS, CORD (test code = 6052706502) mEq/L AC PH, CORD (BEAKER) (test code = 6462479774) 7.18-7.38 PC02, CORD (test code = 8669785722) See_Comment H [Automated messa ge] The system which generated this result transmitted reference range: 32 - 66 mmHg. The reference range was not used to interpret this result as normal/abnormal. PO2, CORD (test code = 5649900326) See_Comment [Automated messa ge] The system which generated this result transmitted reference range: 10 - 30 mmHg. The reference range was not used to interpret this result as normal/abnormal. BICARBONATE, CORD (test code = 5181546892) See_Comment [Automated me ssage] The system which generated this result transmitted reference range: 17 - 27 mEq/L. The reference range was not used to interpret this result as normal/abnormal. Lab Interpretation (test code = 38679-5) Abnormal [facility] HospitalHepatitis B Surface [id number] 06:38:00 * Test Item Value Reference Range Interpretation Comme nts HBsAg Semi-Quantitative (meredith t code = 5195-3) Negative Negative [facility] POONAM ONLY - [id number] 01:59:00* Test Item Value Reference Range Interpretation Comme nts RPR (Qualitative) (test code = 96175-2) Nonreactive Nonreactive Lab Interpretation (test cod e = 90968-9) Normal [facility] HospitalHIV 1/2 AG-AB WITH [id number] 23:45:00* Test Item Value Reference Range Interpretation Comme nts HIV Semi-quantitative (test code = 36320-2) Negative Negative RADHA (test code = RADHA) Non-reactive for HIV-1 antigen and HIV-1/HIV-2 antibodies. ?No laboratory evidence of HIV infection. ?Repeat in 2-4 weeks if acute HIV infection is suspected. [facility] HospitalType and Screen - ONCE [id number] 23:17:21 * Test Item Value Reference Range Interpretation Comme nts ABO & RH (test code = 20) O Negative Performed at [facility] Laboratory Services - [facility] Blood [address] [place], [place] [id number] Free: [phone] No. [id number] IAT (test code = 1185) Negative Performed at [facility] Laboratory [facility] Blood [address] [place], [place] [id number] Free: [phone] No. [id number] General acute hospital WITH [id number] 22:33:00* Test Item Value Reference Range Interpretation Comme nts WBC (test code = 6690-2) See_Comment [Automated messa ge] The system which generated this result transmitted reference range: 4.50 - 13.50 10*3/?L. The reference range was not used to interpret this result as normal/abnormal. RBC (test code = 789-8) See_Comment L [Automated messa ge] The system which generated this result transmitted reference range: 4.10 - 5.10 10*6/?L. The reference range was not used to interpret this result as normal/abnormal. HGB (test code = 718-7) 10.4 g/dL 12-16 L HCT (test code = 4544-3) 31.6 % 36-45 L MCV (test code = 787-2) 91.6 fL 78-95 MCH (test code = 785-6) 30.1 pg 26-32 MCHC (test code = 786-4) 32.9 g/dL 32-36 RDW-SD (test code = 92141-2) 42.1 fL 38.5-49 RDW-CV (test code = 788-0) 12.6 % 11.5-14 PLT (test code = 777-3) See_Comment [Automated messa ge] The system which generated this result transmitted reference range: 135 - 361 10*3/?L. The reference range was not used to interpret this result as normal/abnormal. MPV (test code = 11824-1) 9.5 fL 9.4-13.3 NRBC/100 WBC (test code = 7978801532) See_Comment [Automated me ssage] The system which generated this result transmitted reference range: 0.0 - 10.0 /100 WBCs. The reference range was not used to interpret this result as normal/abnormal. NRBC x10^3 (test code = 9960851983) <0.01 See_Comment [Automated messa ge] The system which generated this result transmitted reference range: 10*3/?L. The reference range was not used to interpret this result as normal/abnormal. GRAN MAT (NEUT) % (test code = 770-8) 74.5 % IMM GRAN % (test code = 1538195873) 0.60 % LYMPH % (test code = 736-9) 17.4 % MONO % (test code = 5905-5) 6.4 % EOS % (test code = 713-8) 0.6 % BASO % (test code = 706-2) 0.5 % GRAN MAT x10^3(ANC) (test code = 5009193332) 6.33 10*3/uL 1.5-10.3 IMM GRAN x10^3 (test code = 8005763967) 0.05 10*3/uL 0-0.06 LYMPH x10^3 (test code = 731-0) 1.48 10*3/uL 0.7-7.4 MONO x10^3 (test code = 742-7) 0.54 10*3/uL 0-0.5 H EOS x10^3 (test code = 711-2) 0.05 10*3/uL 0-0.4 BASO x10^3 (test code = 704-7) 0.04 10*3/uL 0-0.1 Lab Interpretation (test code = 14456-7) Abnormal [facility] URINALYSIS W/O SPECIFIC [id number] 21:04:00* Test Item Value Reference Range Interpretation Comme nts POCT PH U (test code = 3254) N/A 5-8 POCT U LEUK EST (test code = 3263) N/A Negative - Negative POCT U NIT (test code = 3262) N/A Negative - Negati ve POCT U PROT (test code = 3259) Negative Negative - Negat simone POCT U GLU (test code = 3256) Negtaive Negative - Negati ve POCT U KETONE (test code = 3258) N/A Negative - Neg ative POCT U BLD (test code = 3257) N/A Negative - [facility] [id number] 21:04:00* Test Item Value Reference Range Interpretation Comme nts POCT PH U (test code = 3254) N/A 5-8 POCT U LEUK EST (test code = 3263) N/A Negative - Negative POCT U NIT (test code = 3262) N/A Negative - Negati ve POCT U PROT (test code = 3259) Negative Negative - Negat simone POCT U GLU (test code = 3256) Negtaive Negative - Negati ve POCT U KETONE (test code = 3258) N/A Negative - Neg ative POCT U BLD (test code = 3257) N/A Negative - [facility]ati ve [facility] [id number] 21:04:00* Test Item Value Reference Range Interpretation Comme nts POCT PH U (test code = 3254) N/A 5-8 POCT U LEUK EST (test code = 3263) N/A Negative - Negative POCT U NIT (test code = 3262) N/A Negative - Negati ve POCT U PROT (test code = 3259) Negative Negative - Negat simone POCT U GLU (test code = 3256) Negtaive Negative - Negati ve POCT U KETONE (test code = 3258) N/A Negative - Neg ative POCT U BLD (test code = 3257) N/A Negative - Negati ve [facility]3 HR GLUCOSE TOLERANCE [id number] 17:17:00 * Test Item Value Reference Range Interpretation Comme nts GLUC 3 HR (test code = 3800761251) 66 mg/dL 70-110 L Lab Interpretation (test cod e = 08627-5) Abnormal [facility] HR GLUCOSE TOLERANCE [id number] 15:50:00 * Test Item Value Reference Range Interpretation Comme nts GLUC 2 HR (test code = 0261746108) 59 mg/dL 70-120 L Lab Interpretation (test cod e = 11924-4) Abnormal [facility] HR GLUCOSE TOLERANCE [id number] 14:51:00 * Test Item Value Reference Range Interpretation Comme nts GLUC 1 HR (test code = 0669741429) 98 mg/dL 120-170 L Lab Interpretation (test cod e = 41163-8) [facility]normal [facility] [id number] 14:19:00* Test Item Value Reference Range Interpretation Comme nts GLU FASTNG (test code = 8473397273) 73 mg/dL 70-110 Lab Interpretation (test cod e = 76593-8) Normal [facility] Notes Date/Time Note Provider Source 2023-08-07 08:12:39 2775-12-34I21:12:39F ormatting of this note might be different from the original.Pt c/o "brown fluid". Soaked underwear, bottoms, and sheets. Cramping in the lower back 4/10 pain. Denies having intercourse. Instructed pt to go to ER. Verbalized understanding.LEXUS YAP RN 08/07/2023 8:15 AM 68825-9Zsnrcrlbw encounter QdokRB1064-82-07Y15:15:27Telephone encounter NoteTXT1.2.840.443254.1.13.104.2.7 .2.739226|[id number] for patient kdsr14872-5YjkjDPRUSBRFLYWUoyslglu d C-CDA narrative text[address] Hw[id number] 13HYVFTLZCZMAFTPJAIEOMHE5735-91-28 T08:15:271.2.840.947374.1.72.3.15| 1.2.840.207135.1.13.104.2.7.2.7278 [id number] [facility] 2023-08-07 08:05:38 3654-96-61C22:05:38F ormatting of this note might be different from the original.Patient calling says she woke up leaking a lot of fluid that is dark with left back pain. 24319-2Yvybelpgv encounter OefqLK4667-37-11M81:07:45Telephone encounter NoteTXT1.2.840.854842.1.13.104.2.7 .2.421774|[id number] for patient mcwi16568-4ItugOBBTHKWSRIXWpmuljxf d C-CDA narrative gjne274620439Dkluc Anthony[address] EmmrC[id number] 74BXIGQSIDXGOHSXDUTJPAPW8200-09-57 T08:07:451.2.840.207689.1.72.3.15| 1.2.840.475621.1.13.104.2.7.2.7278 [id number] Vandana Cruz [facility] 2023-08-06 11:00:00 7315-15-59B14:00:00F ormatting of this note is different from the original.Images from the original note were not included.Venipuncture collection performed by clean technique on the right anticubitus. Total of 1 attempts were made. Slight pressure and a bandage/dressing were applied to the site(s). The patient experienced no complications. The following specimens were processed according to instructions and sent to [facility] laboratories per lab order on 08/06/2023:LT BLUESST 1REDLAVPPTDK GREEN (LiHep)DK GREEN (SodH)GRAYDK BLUE (K2)DK BLUE (S)ACDBlood CultureNIPT/NTDPer pt request only afp 82003-3Ttlqm LbzbMB2185-45-24L11:14:36Nurse NoteTXT1.2.840.575615.1.13.104.2.7 .2.186811|[id number] for patient sfvh96904-6Tungv NoteLNNARRATIVEFormatted C-CDA narrative text[address] QltaKgxypsqbeWhyphitpnDOLO34538325 16VHXTJGPORPYZZDIMJXXSVL2109-80-04 T11:14:361.2.840.598322.1.72.3.15| 1.2.840.612587.1.13.104.2.7.2.7278 [id number] [facility] 2023-07-30 11:15:00 9912-21-63F68:15:00F ormatting of this note might be different from the original.Age: 18 year oldGA: 06c8e-Kifrg well without concerns today-New OB labs within normal limits except for-Anemia: On iron supplements-VZV nonimmune: Recommend Varivax -HSV 1 IgG positive: Denies history of oral/genital herpes. Prodromal symptoms/lesions discussed. Suppression at 36 weeks unless clinically indicated otherwise-Panorama low risk male, fetus Rh+-Horizon negative in 2019-Rh-: RhoGAM given on 07/16/2023. RhoGAM at 28 weeks unless clinically indicated otherwise-UDS presumptive positive for THC: Will repeat random UDS-Maternal serum AFP ordered-Anatomy scan blixpjf-Atxepz-au in 4 weeks for visit with WQ-Figvjg-fs in 8 weeks for visit with Lam 12067-4Mrcpglpj ssjdQL9320-39-03T53:51:37Progress noteTXT1.2.840.293255.1.13.104.2.7 .2.219831|[id number] for patient jimq46609-6VlquIJBQLPMUWUZVywezsnw d C-CDA narrative textUT[address] MrmiQwghvqtkuVrvnnnswfWBGK88977772 77DGAZMUWHTQAOHFQELJNOPV6325-19-32 T12:51:371.2.840.222196.1.72.3.15| 1.2.840.016878.1.13.104.2.7.2.7278 [id number] [facility] 2023-07-16 14:15:00 8565-74-18R79:15:00F ormatting of this note might be different from the original.Age: 18 year oldGA: 90t5nYgjk for problem visitVaginal bleeding-States that she had intercourse last night and noticed vaginal bleeding around 5 AM today that stopped around 11 AM today. Bleeding was more than spotting.-Denies other vaginal symptoms.-No bleeding or spotting noted on exam. No discharge noted. Cervix closed.-Single live IUP noted-Pelvic rest until next visit discussedRh--RhoGAM given todayFollow-up as scheduled for visit 41505-1Pdfpchws ehopJV5259-16-44C94:10:35Progress noteTXT1.2.840.245100.1.13.104.2.7 .2.799531|[id number] for patient bdhs85390-2MeiaPLFMHBEMTJENrtxwdwe d C-CDA narrative textUT[address] [id number] 65KFRDPMGQPKZJANUJRAPMBW4568-74-15 T15:10:351.2.840.766482.1.72.3.15| 1.2.840.122192.1.13.104.2.7.2.7278 [id number] [facility] 2023-07-16 11:07:27 4528-75-13Z70:07:27F ormatting of this note might be different from the original.Per Dr. Camarillo: bring patient in to office.Patient scheduled for this afternoon.Barrington Connell RN 07/16/2023 11:08 AM 77800-2Koqptmdbw encounter BhocQU3457-81-80J86:09:00Telephone encounter NoteTXT1.2.840.538846.1.13.104.2.7 .2.989578|6875182300JZDbllsygsz for patient qvxb98978-5CvffRAACZTXZDIAAaothtsj d C-CDA narrative [id number] Collins RNUT[id number] 28VRWKIWIDIMUCJKHOJEUPUE5394-09-53 T11:09:001.2.840.597024.1.72.3.15| 1.2.840.440512.1.13.104.2.7.2.7278 [id number] Barrington Connell RN [facility] 2023-07-16 10:28:32 1130-88-36C37:28:32F ormatting of this note might be different from the original.Spoke with patient. Patient states she started having vaginal bleeding at 5 AM. She went to bathroom and noticed blood in toilet bowl and on toilet paper. Bleeding happened every time she went to bathroom. Blood is not in her underwear. Bright red blood. Patient reports cramping and back pain on left lower side. Patient denies blood clots, vaginal discharge/odor, uti symptoms. [place] around 11pm last night.Bleeding has subsided within the past hour. 70362-7Qcenxaecs encounter NhkkEK9033-95-51H86:40:24Telephone encounter NoteTXT1.2.840.382857.1.13.104.2.7 .2.730477|[id number] for patient nfpu59932-6SetxHZFHVHJWPZEDvwpcuvv d C-CDA narrative textUT[address] IsuaNoltzcmzcIbwysmrafWEMU05543358 40UKWKWMKAIQOANTJYGBFWND7345-27-01 T10:40:241.2.840.264370.1.72.3.15| 1.2.840.494467.1.13.104.2.7.2.7278 [id number] [facility] 2023-07-16 10:26:02 2872-48-55V76:26:02F ormatting of this note might be different from the original.Pt says she was bleeding this morning she not sure if it due to intercourse she has recently. 95711-3Gdbskozhl encounter ObgnUC8246-79-86X91:26:44Telephone encounter NoteTXT1.2.840.377671.1.13.104.2.7 .2.962829|5476521093MZTsgwglync for patient hdfn70321-5VwrhAIDBECTWUPQFtltvvtu d C-CDA narrative [id number] [address]TXTX[address] 90PGFVNFJVBUROCLPQNYUMFN5471-14-54 T10:26:441.2.840.220615.1.72.3.15| 1.2.840.364396.1.13.104.2.7.2.7278 [id number] Vandana Cruz [facility] 2023-07-14 10:04:43 2532-47-40U56:04:43F ormatting of this note might be different from the original.Spoke with Kristy Cody via email.Test ordered in error. Horizon completed 08/2018. negative.HORIZON ORDER CANCELLED.Barrington Connell RN 07/14/2023 10:05 AM 72126-5Jqabucwsi encounter LzptNE7006-69-96V10:05:25Telephone encounter NoteTXT1.2.840.693707.1.13.104.2.7 .2.469219|0304340218KSCvrfzuior for patient gduw21962-6XgknUXHBYCASHFIHytjmivb d C-CDA narrative vwvg143542602Cyutrjp Collins [address]TXTX[address] 72OQBGHKZCVAYYCQSLPIFQZM5377-99-84 T10:05:251.2.840.500329.1.72.3.15| 1.2.840.519765.1.13.104.2.7.2.7278 [id number] Barrington Connell RN [facility] 2023-07-14 09:50:33 4225-90-70D98:50:33F ormatting of this note might be different from the original.Received Panorama results via fax. Stamped and will be scanned/uploaded into pt's chart.Pt viewed Kristy results via website.LEXUS YAP RN 07/14/2023 9:50 AM 89549-0Bkpkbwpcy encounter ZniiCO7190-20-82M81:50:55Telephone encounter NoteTXT1.2.840.157138.1.13.104.2.7 .2.664963|1207673892LJBnsbtryws for patient ndgr95117-9GgceCSDVSGVXOZLCemadodl d C-CDA narrative ivqb764578947Zdtkzmwca G Cervantes [address]TXTX[address] 58JLQPIUAAAYCNYWIQLOILMP1007-01-01 T09:50:551.2.840.173099.1.72.3.15| 1.2.840.918951.1.13.104.2.7.2.7278 [id number] Lexus Yap [facility] 2023-07-14 09:45:30 3155-49-09K42:45:30F ormatting of this note might be different from the original.Kristy thinks this order is a duplicate please contact them ph#[phone] signed by Vandana Cruz at 07/14/2023 9:46 AM KWD97647-0Kogguavcu encounter LdptVV0270-66-22K86:46:52Telephone encounter NoteTXT1.2.840.962344.1.13.104.2.7 .2.367434|6645302235CBTlnjmipdb for patient oipj16014-9YepxTYPRAHTPOKXYyirfujd d C-CDA narrative qgbt763884670Cdmha [address] 66ZXWOJFAINKEZCBWGWJWSMV3024-31-92 T09:46:521.2.840.900438.1.72.3.15| 1.2.840.134186.1.13.104.2.7.2.7278 [id number] Vandana Cruz [facility] 2023-07-10 09:42:45 4232-52-99R15:42:45F ormatting of this note might be different from the original.Changes were made through Kristy.LEXUS YAP RN 07/10/2023 9:43 AM 10646-5Lqfwaecjd encounter OqeeFC6702-20-73Y14:43:14Telephone encounter NoteTXT1.2.840.485893.1.13.104.2.7 .2.391775|[id number] for patient sthn95325-0NlqoGFGELOWGUTBIpabdgal d C-CDA narrative acnv202079520Wpqrhsazu G Cervantes [address]TXTX[address] 07SWNRWNCABRRNTYLJPJDHLA1278-90-32 T09:43:141.2.840.821424.1.72.3.15| 1.2.840.476800.1.13.104.2.7.2.7278 [id number] Lexus Yap [facility] 2023-07-10 09:18:45 0634-41-45I43:18:45F ormatting of this note might be different from the original.Deisy Wagner calling need to go over orders and samples.Case#[id number]# [phone] signed by Vandana Cruz at 07/10/2023 9:20 AM BCT54453-5Jbldiuutn encounter GkseNL3813-88-35V71:20:11Telephone encounter NoteTXT1.2.840.608879.1.13.104.2.7 .2.339283|[id number] for patient pvyr31773-8ZnexJSBKJJKYEWEQxsguixq d C-CDA narrative pauh956051788Ssqji Rodriguez[address] KunoRbiijifjgJmbpvihfrRYWJ11319637 53LOFKJIGDYBUZYBENGSXTMP7225-41-34 T09:20:111.2.840.759009.1.72.3.15| 1.2.840.123400.1.13.104.2.7.2.7278 [id number] Vandana Cruz [facility] 2023-07-02 15:30:00 8116-12-57E58:30:00F ormatting of this note is different from the original.Images from the original note were not included.Venipuncture collection performed by clean technique on the right anticubitus. Total of 1 attempts were made. Slight pressure and a bandage/dressing were applied to the site(s). The patient experienced no complications. The following specimens were processed according to instructions and sent to [facility] laboratories per lab order on 07/02/2023:LT BLUESST 3RED 1LAV 2PPTDK GREEN (LiHep)DK GREEN (SodH)GRAYDK BLUE (K2)DK BLUE (S)ACDBlood CultureNIPT/NTDNatera Kit collected for pt.Kathya Scott 07/02/2023 3:19 PM 70031-9Weoqi HckyFQ3566-57-29Q64:19:58Nurse NoteTXT1.2.840.784863.1.13.104.2.7 .2.757586|[id number] for patient evjx32553-3Zmvmn NoteLNNARRATIVEFormatted C-CDA narrative text[address]on[place]TX[address] 96QTVJGKDNRZBKOSBMQYXRPD3999-78-46 T15:19:581.2.840.436921.1.72.3.15| 1.2.840.494921.1.13.104.2.7.2.7278 [id number] [facility] 2023-07-02 14:30:00 9263-87-38C04:30:00F ormatting of this note might be different from the original.Age: 18 year oldGA: 41w9yXps [facility] and was given GLADYS of 01/26/2024.- Today USG: Single live IUP measured 10 weeks and 0 days, consistent with LMP. Will date by Patient's last menstrual period was 04/21/2023. unless clinically indicated otherwiseNew OB labs today. No complaints. Discussed do's and don'ts of , safe foods, safe medications. Reviewed Zika virus precautions. I discussed the call schedule and that I might not be the physician delivering her. I discussed I deliver my patients at [facility]. Expectations for weight gain this include 25-35 pounds. Encouraged to call if have any additional questions or concerns. Discussed aneuploidy and carrier screening; patient opts for panorama/Horizon.Have not received COVID/flu vaccines. Counseled and recommend COVID/flu vaccines. Patient declinedDiscussed about COVID-19/flu precautions. Social distancing, frequent hand washings, wearing face mask, signs/symptoms for testing and to follow CDC recommendations discussed.Discussed with patient that she can have HEALTHY support with her during her delivery (which is subject to change depends on the COVID pandemic)Next visit in 4 week 03028-0Xxklmehq cjrlSN5983-06-84Z46:36:37Progress noteTXT1.2.840.525894.1.13.104.2.7 .2.418676|[id number] for patient lues83616-2JzmsMZMTDYCLGAOFohrsuob d C-CDA narrative text[address] VhwxUjaditjqwSartxycspKLKU24928975 68ITQIPCBCRZDWFBMUQMXDQZ3990-42-30 T17:36:371.2.840.010086.1.72.3.15| 1.2.840.608625.1.13.104.2.7.2.7278 [id number] [facility]
[2023-08-07 11:21] LABS: Absolute Basophils 0.1 K/uL (0-0.5); Absolute Eosinophils 0.1 K/uL (0-0.5); Absolute Lymphocytes (CBC) 1.4 K/uL (0.7-4.9); Absolute Monocytes 0.5 K/uL (0.1-1.3); Absolute Neutrophil 7.8 K/uL (1.8-8.0); Basophils % 0.5 % (0-1.3); Eosinophils % 0.6 % (0-4.4); Hematocrit 26.8 % (36.0-45.0); Hemoglobin 8.5 g/dL (12.0-15.0); Lymphocytes % 14.1 % (15.3-44.8); MCHC 31.8 g/dL (32.0-36.0); MCV 75.5 fL (80-100); MPV 6.8 fL (7.6-11.3); Monocytes % 5.5 % (3.3-12.3); Neutrophils % 79.3 % (41.7-73.7); Platelets 342 thou/uL (152-406); RBC Red Blood Cell Count 3.55 M/uL (3.86-4.86); Red Cell Distribution Width 17.5 % (12.1-15.2)
--- NOTE | 2023-08-07 11:27 | RAD REPORT ---
EXAM DESCRIPTION: US - Transvaginal OB - 08/07/2023 10:59 am CLINICAL HISTORY: ABD CRAMPING, COMPARISON: No comparisons TECHNIQUE: Sonographic grayscale and color flow images of a second -trimester were obtaine d through transabdominal approach. FINDINGS: A single live intrauterine is identified. Fetus in variable presentation. Returning Officer al cervical os is closed. Placenta has formed anteriorly. At least 2 components of abnormal collectio ns are visualized. The first is triangular and hypoechoic with low-level echoes, present at the fundu s, and reaching the interface of the placental implantation superiorly. This measures 2.6 x 2.0 x 1.4 cm. Another crescentic component of collection extends posteriorly, difficult to measure in axial di mension, but measures at least 1.8 cm in thickness. heart rate: 167 BPM. Femur length measures 16 millimeters, corresponding to gestational age of 14 weeks, 5 days. Maternal ovaries were not visualized. No free fluid. IMPRESSION: 1. Single live intrauterine . 2. Two components of perigestational hemorrhage are appreciated, including a fundal component reachin g the upper placental implantation interface, which could be of retroplacental origin/ abruption. The second crescentic component extends posteriorly and appears subchorionic in location. 3. Calculated gestational age: 14 weeks, 5 days. Estimated due date by ultrasound: 01/31/2024. The findings were communicated to Nilo Mix on 08/07/2023 at 11:20 hours.
[2023-08-07 11:37] LABS: Albumin 3.1 g/dL (3.4-5.0); Albumin/Globulin Ratio 0.7 (1.1-1.8); Anion Gap 6.8 mEq/L (5.0-15.0); Bilirubin Total 0.3 mg/dL (0.2-1.0); Globulin 4.3 g/dL (2.3-3.5); Potassium 3.8 mEq/L (3.5-5.1); Protein, Total 7.4 g/dL (6.4-8.2)
--- NOTE | 2023-08-07 11:48 | EDPHYS ---
Physician Documentation [facility] Name: Leland Ridley Age: 18 yrs Sex: Female : 2005 Arrival Date: 08/07/2023 Time: 10:11 Bed 19 Private MD: ED Physician Mayo Dozier HPI: 08/06 11:50 This 18 yrs old Female presents to ER via Ambulatory with complaints of 15 ec2 Weeks , Vaginal Bleeding, Abdominal Cramping. 11:50 Patient arrives today for evaluation of vaginal bleeding and abdominal pain. States ec2 that this morning she had noted some vaginal bleeding, has had issues with vaginal bleeding throughout this however noted it to be more substantial. Patient also reports slight clear liquid fluid coming from the vagina. Patient reports previous without complication.. ATOMIC SPECTROSCOPIST: 12:36 2, Full Term 1, Verified nj1 Historical: - Allergies: 11:01 No Known Allergies; hb - Home Meds: 11:01 None [Active]; hb - PMHx: 11:01 None; hb - PSHx: 11:01 None; hb - Immunization history:: Adult Immunizations up to date. - Infectious Disease History:: Denies. - Social history:: Smoking status: Patient denies any tobacco usage or history of. ROS: 11:57 Constitutional: as per hpi ec2 Exam: 11:57 Constitutional: GEN: NAD Head: atraumatic Eyes: EOMI Ears: External ears are ec2 normal. CV: regular rate LUNGS: no respiratory distress ABD: non-distended, TTP in lower abdomen, no guarding, not rigid. SKIN: no evidence of rashes MSK: no evidence of trauma NEURO: moves all extremities equally Vital Signs: 10:58 BP 109 / 74; Pulse 85; Resp 16; Temp 97.3(TE); Pulse Ox 100% on R/A; Weight 48.99 kg; hb Height 5 ft. 0 in. ; Pain 5/10; 12:13 BP 106 / 77; Pulse 70; Resp 16; Pulse Ox 100% ; Pain 5/10; nj1 13:16 Pain 3/10; nj1 13:17 BP 116 / 77; Pulse 84; Resp 16; Pulse Ox 100% ; Pain 3/10; nj1 10:58 Body Mass Index 21.09 (48.99 kg, 152.4 cm) hb 10:58 Pain Scale: Adult hb 12:13 Pain Scale: Adult nj1 13:16 Pain Scale: Adult nj1 13:17 Pain Scale: Adult nj1 MDM: 10:29 Patient medically screened. ec2 10:45 ED course: Patient arrives today for lower abdominal pain. Examination remarkable for ec2 abdominal findings of the blood. Will obtain ultrasound. Differential diagnosis includes ectopic, miscarriage, subchorionic bleeding.. 11:40 ED course: CBC shows slight anemia with a hemoglobin of 8.5. Metabolic profile is ec2 reassuring. Ultrasound shows live IUP concern for placental abruption, estimated dates are 14 weeks and 5 days, cervix is closed. . 11:48 Data reviewed: vital signs. ec2 11:58 ED course: On reassessment patient is well-appearing in no acute distress, patient ec2 remains hemodynamically stable, will transfer. Discussed case with the transferring physician at [facility] who agrees accept the patient transfer to L\T\D triage. 12:12 ED course: MDM: Differential diagnosis as documented above in ED course; All lab tests ec2 ordered and reviewed as documented above; History gathered from independent historian: Yes, patient and mother; Discuss inpatient hospitalization: Yes; I discussed the case with: transferring doc . 12:13 ED course: Patient is O-, will order the patient RhoGAM.. ec2 12:35 ED course: Patient not given a RhoGAM due to timeframe of obtaining and administering ec2 the RhoGAM, followed by more appropriate to transfer the patient given the diagnosis of placental abruption. Nursing updated regarding plan of care and instructed to relay the message . 08/06 10:29 Order name: CBC with Diff; Complete Time: 11:37 ec2 08/06 10:29 Order name: CMP; Complete Time: 11:37 ec2 08/06 10:29 Order name: Abo/rh Typing; Complete Time: 12:13 ec2 08/06 11:40 Order name: PT-INR; Complete Time: 12:13 ec2 08/06 11:40 Order name: Ptt, Activated; Complete Time: 12:13 ec2 08/06 11:21 Order name: OB Limited; Complete Time: 11:37 EDMS 08/06 10:29 Order name: IV Saline Lock; Complete Time: 11:24 ec2 08/06 10:29 Order name: Labs collected and sent; Complete Time: 11:24 ec2 Administered Medications: 12:10 Drug: Acetaminophen PO 1000 mg PO once Route: PO; nj1 13:16 Follow up: Pain /10 Adult; Response: No adverse reaction; Pain is decreased nj1 13:17 Not Given (Not availablee): rho d immune oydyobei976 mcg IM once nj1 Disposition Summary: 08/07/23 11:47 Transfer Ordered Notes: Transfer Location: [facility]-System ec2 Reason: Higher level of care ec2 Condition: Stable ec2 Problem: new ec2 Symptoms: are unchanged ec2 Accepting Physician: OB [facility](08/07/23 13:22) nj1 Diagnosis - Placental Abruption ec2 - Lower abdominal pain, unspecified ec2 - 15 weeks gestation of ec2 Forms: - Medication Reconciliation Form ec2 - SBAR form ec2 Signatures: Dispatcher [employer] Dinora Otero RN RN Rosy Lemus RN RN nj1 Mayo Dozier MD MD ec2 Corrections: (The following items were deleted from the chart) 10:30 10:30 CBC+H.LAB.BRZ ordered. EDMS EDMS 10:30 10:30 COMPREHENSIVE METABOLIC PANEL+C.LAB.BRZ ordered. EDMS EDMS 10:30 10:30 ABO/RH TYPING+BB.LAB.BRZ ordered. EDMS EDMS 11:21 10:30 Transvaginal Ob+US.RAD.BRZ ordered. EDMS EDMS 11:41 11:41 PROTIME (+INR)+COAG.LAB.BRZ ordered. EDMS EDMS 11:41 11:41 PTT, ACTIVATED+COAG.LAB.BRZ ordered. EDMS EDMS 12:40 12:13 RHOGAM+BB.LAB.BRZ ordered. EDMS EDMS 12:40 12:15 Rh Typing ordered. EDMS EDMS 12:40 12:15 Antibody Screen ordered. EDMS EDMS 12:40 12:15 Fetalscreen ordered. EDMS EDMS 12:40 12:16 Cord Rh type ordered. EDMS EDMS 13:22 11:47 OB [facility] ec2 nj1
--- NOTE | 2023-08-07 11:48 | ER ---
Nurse's Notes [facility] Name: Leland Ridley Age: 18 yrs Sex: Female : 2005 Arrival Date: 08/07/2023 Time: 10:11 Bed 19 Private MD: Diagnosis: Placental Abruption;Lower abdominal pain, unspecified;15 weeks gestation of Presentation: 08/06 10:45 Note Pt in US, unable to complete triage at this time. hb 10:58 Chief complaint: Left sided abdominal cramping and puga vaginal bleeding since last hb night. Pt is approx 15 weeks , LMP 3/5, . Coronavirus screen: At this time, the client does not indicate any symptoms associated with coronavirus-19. Ebola Screen: No symptoms or risks identified at this time. Initial Sepsis Screen: Does the patient meet any 2 criteria? No. Patient's initial sepsis screen is negative. Does the patient have a suspected source of infection? No. Patient's initial sepsis screen is negative. Risk Assessment: Do you want to hurt yourself or someone else? Patient reports no desire to harm self or others. Onset of symptoms was August 06, 2023. 10:58 Method Of Arrival: Ambulatory hb 10:58 Acuity: KEYANNA 3 hb Triage Assessment: 11:01 General: Appears in no apparent distress. Behavior is calm, cooperative. Pain: Pain hb currently is 5 out of 10 on a pain scale. Neuro: Level of Consciousness is awake, alert, obeys commands, Oriented to person, place, time, situation. Cardiovascular: Patient's skin is warm and dry. Respiratory: Respiratory effort is even, unlabored, Respiratory pattern is regular, symmetrical. GI: Reports cramping. : Reports vaginal bleeding that is brown. QUALITY ASSURANCE COACH: 12:36 2, Full Term 1, Verified nj1 Historical: - Allergies: 11:01 No Known Allergies; hb - Home Meds: 11:01 None [Active]; hb - PMHx: 11:01 None; hb - PSHx: 11:01 None; hb - Immunization history:: Adult Immunizations up to date. - Infectious Disease History:: Denies. - Social history:: Smoking status: Patient denies any tobacco usage or history of. Screenin:35 [facility] ED Fall Risk Assessment (Adult) History of falling in the last 3 months, nj1 including since admission No falls in past 3 months (0 pts) Confusion or Disorientation No (0 pts) Intoxicated or Sedated No (0 pts) Impaired Gait No (0 pts) Mobility Assist Device Used No (0 pt) Altered Elimination No (0 pt) Score/Fall Risk Level 0 - 2 = Low Risk Oriented to surroundings, Maintained a safe environment, Hourly rounding (assess needs \T\ fall precautionary measures) done. Abuse screen: Denies threats or abuse. Denies injuries from another. Nutritional screening: No deficits noted. Tuberculosis screening: No symptoms or risk factors identified. Assessment: 11:50 General: Appears in no apparent distress. comfortable, Behavior is calm, cooperative, nj1 appropriate for age. Pain: Complains of pain in back Pain currently is 6 out of 10 on a pain scale. 11:50 Neuro: Level of Consciousness is awake, alert, obeys commands, Oriented to person, nj1 place, time, situation. Cardiovascular: Patient's skin is warm and dry. Respiratory: Airway is patent Respiratory effort is even, unlabored. : Reports vaginal bleeding that is bright red, brown, since yesterday, worse this morning. 13:13 Reassessment: EMS here to transport patient. Report given to Charisma Sosa EMT. [facility] 13:18 Reassessment: Patient appears in no apparent distress at this time. Patient is alert, nj1 oriented x 3, equal unlabored respirations, skin warm/dry/pink. Vital Signs: 10:58 BP 109 / 74; Pulse 85; Resp 16; Temp 97.3(TE); Pulse Ox 100% on R/A; Weight 48.99 kg; hb Height 5 ft. 0 in. ; Pain 5/10; 12:13 BP 106 / 77; Pulse 70; Resp 16; Pulse Ox 100% ; Pain 5/10; nj1 13:16 Pain 3/10; nj1 13:17 BP 116 / 77; Pulse 84; Resp 16; Pulse Ox 100% ; Pain 3/10; nj1 10:58 Body Mass Index 21.09 (48.99 kg, 152.4 cm) hb 10:58 Pain Scale: Adult hb 12:13 Pain Scale: Adult nj1 13:16 Pain Scale: Adult nj1 13:17 Pain Scale: Adult nj1 Vitals: 12:13 Heart Tones 160. nj1 ED Course: 10:14 Patient arrived in ED. im 10:15 Mayo Dozier MD is Attending Physician. ec2 11:00 Triage completed. hb 11:01 Arm band placed on. hb 11:11 Initial lab(s) drawn, by me, sent to lab. Inserted saline lock: 20 gauge in left zm antecubital area, using aseptic technique. Blood collected. 11:21 OB Limited In Process Unspecified. EDMS 11:24 CMP Sent. zm 11:25 Abo/rh Typing Sent. zm 11:42 Rosy Lemus, RN is Primary Nurse. nj1 11:47 Initiated transfer with Timothy graphics coordinator from [facility] transfer center. jr12 11:50 Patient has correct armband on for positive identification. Bed in low position. Call nj1 light in reach. Adult w/ patient. 11:50 Provided Education on: call light, fall precautions. nj1 11:51 Inserted saline lock: 20 gauge in right antecubital area, using aseptic technique. nj1 Blood collected. 12:36 No provider procedures requiring assistance completed. Patient transferred, IV remains nj1 in place. Administered Medications: 12:10 Drug: Acetaminophen PO 1000 mg PO once Route: PO; nj1 13:16 Follow up: Pain 3/10 Adult; Response: No adverse reaction; Pain is decreased nj1 13:17 Not Given (Not availablee): rho d immune [id number] mcg IM once nj1 Medication: 12:36 VIS not applicable for this client. nj1 Outcome: 11:47 ER care complete, transfer ordered by . ec2 12:26 Transferred by ground EMS to [facility], Transfer form nj1 completed. Note: Report called to Mag PERALTA 12:26 Condition: stable nj1 12:26 Instructed on the need for transfer, 13:22 Patient left the ED. nj1 Signatures: Dispatcher [employer] EDMS Dinora Harding RN RN hb Martinez, Zaina Rosy Lemus RN RN nj1 Kae Ordonez Mayo Dozier MD MD ec2 Hattie Winters [email or web address] Corrections: (The following items were deleted from the chart) 10:51 10:50 Chief complaint: hb hb 11:21 11:01 In radiology for Transvaginal Ob+US.RAD.BRZ. EDMS EDMS 11:26 11:24 Inserted saline lock: 20 gauge in left antecubital area, using aseptic technique. Blood collected. 11:24 Initial lab(s) drawn, by me, sent to lab. [facility] 13:17 12:13 BP 106 / 77; Pulse 70bpm; Resp 16bpm; Pulse Ox 100%; nj1 nj1
[2023-08-07] MEDS ORDERED: ACETAMINOPHEN 500 MG TAB ONE (11:55)
[2023-08-07 12:08] LABS: PT Prothrombin Time 10.7 SECONDS (9.4-12.5); PTT, Activated Partial Thromb 25.3 SECONDS (24.3-36.9); Protime INR 0.97
[2023-08-07 13:30] VITALS: TEMP 97.3; O2SAT 100
[2023-08-07 13:47] VITALS: BP 116/77
== END 2023-08-07 13:22 | disposition short-term general hospital (02) ==
LOC: ER 10:11
DX: O45.92 Premature separation of placenta, unspecified, second trimester (principal); Z3A.15 15 weeks gestation of pregnancy
CPT/HCPCS: 36415; 76815; 80053; 85025; 85610; 85730; 86900; 86901; 99285